=== PATIENT | male | born 1960 | race Caucasian/White ===

== ENCOUNTER 2019-01-27 16:11 | Inpatient (IN) ==
[2019-01-27 17:32] LABS: Basophils # 0.1 10*3/uL (0.0-0.2); Basophils % 0.3 % (0.0-0.8); Eosinophils % 0.2 % (0.00-10.9); Hematocrit 46.1 VOL% (42.0-52.0); Hemoglobin 14.7 GM/DL (14.0-18.0); Immature Granulocytes % 0.5 %; Immature Granulocytes Absolute 0.08 #; Lymphocytes # 1.7 10*3/uL (1.4-4.0); Lymphocytes % 10.9 % (21.2-54.2); Mean Corpuscular HGB Conc 31.9 GM/DL (32-36); Mean Corpuscular Volume 85.2 FL (87-102); Mean Platelet Volume 10.4 FL (9.6-12.0); Monocytes % 6.8 % (1.7-12.7); Neutrophils % 81.3 % (38.7-73.9); Platelet Count 190 T/CUMM (130-400); Red Blood Count 5.41 MC/CUMM (3.8-5.5); Red Cell Distribution Width 13.3 % (9.3-17.3); White Blood Count 15.7 T/CUMM (4-12)
[2019-01-27 18:07] LABS: Calcium 8.9 MG/DL (8.5-10.1); Osmolality,Calculated 278.5 MOS/KG (273-304)
[2019-01-28 01:09] LABS: Basophils % 0.2 % (0.0-0.8); Eosinophils # 0.1 10*3/uL (0.0-0.87); Eosinophils % 0.8 % (0.00-10.9); Hematocrit 43.5 VOL% (42.0-52.0); Hemoglobin 14.3 GM/DL (14.0-18.0); Immature Granulocytes % 0.9 %; Immature Granulocytes Absolute 0.11 #; Lymphocytes # 1.9 10*3/uL (1.4-4.0); Mean Corpuscular HGB Conc 32.9 GM/DL (32-36); Mean Corpuscular Volume 84.1 FL (87-102); Monocytes % 6.9 % (1.7-12.7); Neutrophils % 75.2 % (38.7-73.9); Platelet Count 168 T/CUMM (130-400); Red Blood Count 5.17 MC/CUMM (3.8-5.5); Red Cell Distribution Width 13.4 % (9.3-17.3)
[2019-01-28 01:14] LABS: Albumin 3.6 G/DL (3.4-5.0); Calcium 9.1 MG/DL (8.5-10.1); Osmolality,Calculated 282.4 MOS/KG (273-304); Risk Ratio 4.28; Thyroid Stimulating Hormone 1.76 uIU/ml (0.358-3.74); Total Protein 7.5 G/DL (6.4-8.3)
[2019-01-28] MEDS: ENOXAPARIN 150 MG/ML SYRINGE SUBCUT SCH ×2 (01:39→16:46)
[2019-01-28] MEDS: CARVEDILOL 3.125 MG TABLET PO SCH ×2 (09:50→20:50)
[2019-01-28] MEDS: DORZOLAMIDE 2% OPH SOLN 10 ML BOTTLE RIGHT EYE SCH (09:58)
[2019-01-28] MEDS: LATANOPROST 0.005% OPH SOLN 2.5 ML BOTTLE RIGHT EYE SCH (09:59)
[2019-01-28] MEDS ORDERED: diphenhydrAMINE CAP 50 MG CAPSULE ONE (13:11)
[2019-01-28] MEDS ORDERED: DIAZEPAM 5 MG TABLET ONE (13:12)
[2019-01-28] MEDS ORDERED: DIAZEPAM 5 MG TABLET PO ONE (13:14)
[2019-01-28] MEDS ORDERED: diphenhydrAMINE CAP 50 MG CAPSULE PO ONE (13:14)
[2019-01-28] MEDS ORDERED: SODIUM CHLORIDE 0.9% IV SCH ×4 (13:30)
[2019-01-28] MEDS ORDERED: ALTEPLASE IV SCH ×4 (13:30)
[2019-01-28] MEDS ORDERED: LIDOCAINE 1% 20 ML VIAL ONE ×2 (13:31→14:34)
[2019-01-28] MEDS ORDERED: MIDAZOLAM 2 MG/2 ML VIAL ONE (13:31)
[2019-01-28] MEDS ORDERED: HYDROmorphone 2 MG/1 ML VIAL ONE (13:31)
[2019-01-28] MEDS: SODIUM CHLORIDE 0.9% 1,000 ML IV SCH ×4 (13:58→15:50)
[2019-01-28] MEDS ORDERED: ENOXAPARIN 100 MG/ML SYRINGE SUBCUT ONE ×2 (15:15→16:39)
[2019-01-28] MEDS ORDERED: amLODIPine 5 MG TABLET PO SCH (16:39)
[2019-01-28] MEDS ORDERED: NITROGLYCERIN 2% OINT 1 INCH/GM PACK TOP ONE (21:44)
[2019-01-28] MEDS ORDERED: FUROSEMIDE 20 MG/2 ML VIAL IV ONE (21:44)
[2019-01-29] MEDS: NITROGLYCERIN 2% OINT 1 INCH/GM PACK TOP SCH ×4 (04:34→21:03)
[2019-01-29 04:59] LABS: Basophils % 0.4 % (0.0-0.8); Eosinophils # 0.1 10*3/uL (0.0-0.87); Eosinophils % 0.8 % (0.00-10.9); Hematocrit 43.7 VOL% (42.0-52.0); Hemoglobin 14.2 GM/DL (14.0-18.0); Immature Granulocytes % 0.4 %; Immature Granulocytes Absolute 0.04 #; Lymphocytes # 1.1 10*3/uL (1.4-4.0); Lymphocytes % 9.8 % (21.2-54.2); Mean Corpuscular HGB Conc 32.5 GM/DL (32-36); Mean Corpuscular Volume 85.5 FL (87-102); Mean Platelet Volume 11.3 FL (9.6-12.0); Monocytes % 8.3 % (1.7-12.7); Neutrophils % 80.3 % (38.7-73.9); Platelet Count 80 T/CUMM (130-400); Red Blood Count 5.11 MC/CUMM (3.8-5.5); Red Cell Distribution Width 13.2 % (9.3-17.3); White Blood Count 10.7 T/CUMM (4-12)
[2019-01-29 05:12] LABS: Calcium 9.1 MG/DL (8.5-10.1); Osmolality,Calculated 280.5 MOS/KG (273-304)
[2019-01-29 05:53] LABS: Lymphocytes 7 % (20-55); Segmented Neutrophils 79 % (50-85); Total Cells Counted 100
[2019-01-29 05:54] LABS: Anisocytosis Slight; Microcytosis 1+
[2019-01-29 05:55] LABS: Platelet Estimate Decreased
[2019-01-29] MEDS: CARVEDILOL 3.125 MG TABLET PO SCH ×2 (09:18→21:03)
[2019-01-29] MEDS: LOSARTAN 50 MG TABLET PO SCH (09:18)
[2019-01-29] MEDS: DORZOLAMIDE 2% OPH SOLN 10 ML BOTTLE RIGHT EYE SCH (09:18)
[2019-01-29] MEDS: LATANOPROST 0.005% OPH SOLN 2.5 ML BOTTLE RIGHT EYE SCH (09:18)
[2019-01-29] MEDS: APIXABAN 5 MG TABLET PO SCH ×2 (11:48→21:02)
[2019-01-29] MEDS: SODIUM CHLORIDE 0.9% 1,000 ML IV SCH ×4 (14:51→14:52)
[2019-01-30] MEDS: NITROGLYCERIN 2% OINT 1 INCH/GM PACK TOP SCH ×4 (04:02→22:13)
[2019-01-30 05:33] LABS: Basophils % 0.4 % (0.0-0.8); Eosinophils # 0.3 10*3/uL (0.0-0.87); Eosinophils % 2.5 % (0.00-10.9); Hematocrit 38.8 VOL% (42.0-52.0); Hemoglobin 12.7 GM/DL (14.0-18.0); Immature Granulocytes % 0.6 %; Immature Granulocytes Absolute 0.06 #; Lymphocytes # 1.7 10*3/uL (1.4-4.0); Lymphocytes % 16.8 % (21.2-54.2); Mean Corpuscular HGB Conc 32.7 GM/DL (32-36); Mean Corpuscular Volume 84.2 FL (87-102); Mean Platelet Volume 11.8 FL (9.6-12.0); Monocytes % 9.2 % (1.7-12.7); Neutrophils % 70.5 % (38.7-73.9); Platelet Count 42 T/CUMM (130-400); Red Blood Count 4.61 MC/CUMM (3.8-5.5); Red Cell Distribution Width 13.4 % (9.3-17.3); White Blood Count 9.9 T/CUMM (4-12)
[2019-01-30 05:55] LABS: Calcium 8.5 MG/DL (8.5-10.1); Osmolality,Calculated 280.7 MOS/KG (273-304)
[2019-01-30 06:00] LABS: Platelet Estimate Decreased
[2019-01-30] MEDS: CARVEDILOL 3.125 MG TABLET PO SCH ×2 (08:59→20:17)
[2019-01-30] MEDS: APIXABAN 5 MG TABLET PO SCH (08:59)
[2019-01-30] MEDS: LOSARTAN 50 MG TABLET PO SCH (08:59)
[2019-01-30] MEDS: DORZOLAMIDE 2% OPH SOLN 10 ML BOTTLE RIGHT EYE SCH (09:01)
[2019-01-30] MEDS: LATANOPROST 0.005% OPH SOLN 2.5 ML BOTTLE RIGHT EYE SCH (09:01)
[2019-01-30 16:28] LABS: Basophils % 0.4 % (0.0-0.8); Eosinophils # 0.3 10*3/uL (0.0-0.87); Eosinophils % 3.3 % (0.00-10.9); Hematocrit 40.5 VOL% (42.0-52.0); Hemoglobin 12.8 GM/DL (14.0-18.0); Immature Granulocytes % 0.4 %; Immature Granulocytes Absolute 0.04 #; Lymphocytes % 21.4 % (21.2-54.2); Mean Corpuscular HGB Conc 31.6 GM/DL (32-36); Mean Corpuscular Volume 86.4 FL (87-102); Mean Platelet Volume 12.9 FL (9.6-12.0); Monocytes % 9.6 % (1.7-12.7); Neutrophils % 64.9 % (38.7-73.9); Platelet Count 45 T/CUMM (130-400); Red Blood Count 4.69 MC/CUMM (3.8-5.5); Red Cell Distribution Width 13.5 % (9.3-17.3); White Blood Count 9.3 T/CUMM (4-12)
[2019-01-30 16:50] LABS: Macrocytosis Slight; Polychromasia Few
[2019-01-30 16:51] LABS: Platelet Estimate Decreased; Sickle Cells Slight
[2019-01-31] MEDS: NITROGLYCERIN 2% OINT 1 INCH/GM PACK TOP SCH ×4 (04:23→22:25)
[2019-01-31 04:58] LABS: Basophils % 0.4 % (0.0-0.8); Eosinophils # 0.4 10*3/uL (0.0-0.87); Eosinophils % 4.3 % (0.00-10.9); Hematocrit 35.9 VOL% (42.0-52.0); Hemoglobin 11.7 GM/DL (14.0-18.0); Immature Granulocytes % 0.5 %; Immature Granulocytes Absolute 0.05 #; Lymphocytes # 1.7 10*3/uL (1.4-4.0); Lymphocytes % 18.9 % (21.2-54.2); Mean Corpuscular HGB Conc 32.6 GM/DL (32-36); Mean Corpuscular Volume 84.5 FL (87-102); Mean Platelet Volume 12.8 FL (9.6-12.0); Monocytes % 9.5 % (1.7-12.7); Neutrophils % 66.4 % (38.7-73.9); Platelet Count 47 T/CUMM (130-400); Red Blood Count 4.25 MC/CUMM (3.8-5.5); Red Cell Distribution Width 13.4 % (9.3-17.3); White Blood Count 9.1 T/CUMM (4-12)
[2019-01-31 05:17] LABS: Calcium 8.6 MG/DL (8.5-10.1); Osmolality,Calculated 278.7 MOS/KG (273-304)
[2019-01-31] MEDS: DORZOLAMIDE 2% OPH SOLN 10 ML BOTTLE RIGHT EYE SCH (08:56)
[2019-01-31] MEDS: APIXABAN 2.5 MG TABLET PO SCH ×2 (08:56→22:25)
[2019-01-31] MEDS: LATANOPROST 0.005% OPH SOLN 2.5 ML BOTTLE RIGHT EYE SCH (08:56)
[2019-01-31] MEDS: CARVEDILOL 3.125 MG TABLET PO SCH ×2 (08:56→22:25)
[2019-02-01] MEDS: NITROGLYCERIN 2% OINT 1 INCH/GM PACK TOP SCH ×2 (04:01→09:06)
[2019-02-01 04:46] LABS: Basophils # 0.1 10*3/uL (0.0-0.2); Basophils % 0.6 % (0.0-0.8); Eosinophils # 0.3 10*3/uL (0.0-0.87); Eosinophils % 3.7 % (0.00-10.9); Hemoglobin 11.2 GM/DL (14.0-18.0); Immature Granulocytes % 0.6 %; Immature Granulocytes Absolute 0.05 #; Lymphocytes # 1.9 10*3/uL (1.4-4.0); Lymphocytes % 20.9 % (21.2-54.2); Mean Corpuscular Volume 86.4 FL (87-102); Mean Platelet Volume 12.5 FL (9.6-12.0); Monocytes % 7.7 % (1.7-12.7); Neutrophils % 66.5 % (38.7-73.9); Platelet Count 72 T/CUMM (130-400); Red Blood Count 4.05 MC/CUMM (3.8-5.5); Red Cell Distribution Width 13.5 % (9.3-17.3); White Blood Count 8.9 T/CUMM (4-12)
[2019-02-01 05:19] LABS: Albumin 3.4 G/DL (3.4-5.0); Bilirubin,Total 1.6 MG/DL (0.2-1.0); Calcium 8.6 MG/DL (8.5-10.1); Osmolality,Calculated 279.4 MOS/KG (273-304); Total Protein 6.7 G/DL (6.4-8.3)
[2019-02-01 06:34] LABS: Eosinophils 4 % (0-10); Lymphocytes 18 % (20-55); Myelocytes 1 %; Segmented Neutrophils 70 % (50-85)
[2019-02-01 06:35] LABS: Platelet Estimate Decreased; Total Cells Counted 100
[2019-02-01 07:50] VITALS: BP 129/82
[2019-02-01] MEDS: APIXABAN 2.5 MG TABLET PO SCH (09:05)
[2019-02-01] MEDS: CARVEDILOL 3.125 MG TABLET PO SCH (09:05)
[2019-02-01] MEDS: DORZOLAMIDE 2% OPH SOLN 10 ML BOTTLE RIGHT EYE SCH (09:06)
[2019-02-01] MEDS: LATANOPROST 0.005% OPH SOLN 2.5 ML BOTTLE RIGHT EYE SCH (09:06)
[2019-02-01] MEDS ORDERED: APIXABAN 5 MG TABLET PO SCH (09:30)
[2019-02-01] MEDS ORDERED: APIXABAN 2.5 MG TABLET PO ONE (09:31)
== END 2019-02-01 12:15 | disposition home or self-care (01) | DRG 175 ==
LOC: N.ED 16:11 → SUATTDRO 19:39 → N.EDINP 19:39 → N.TELEN 20:23 → N.CC 01-28 16:05 → N.TELEN 01-29 19:47
PROVIDERS: ADMIT Internal Medicine; ATTEND Hospitalist